=== PATIENT | male | born 1960 | race Caucasian/White ===

== ENCOUNTER 2016-12-11 16:01 | Emergency (ER) | payer OTHER ==
[~2016-12-11] VITALS: Ht 185.4 cm; Wt 74.8 kg
[~2016-12-11 16:01] MED LIST: DOXYCYCLINE100 M3 PO; PREDNISONE10 MG PO
[2016-12-11 16:08] VITALS: BP 110/74
== END 2016-12-11 16:22 | disposition home or self-care (01) ==
LOC: ED 16:01
DX: S80.862A Insect bite (nonvenomous), left lower leg, initial encounter (principal); F17.200 Nicotine dependence, unspecified, uncomplicated; Z98.890 Other specified postprocedural states; Z79.899 Other long term (current) drug therapy; W57.XXXA Bitten or stung by nonvenomous insect and other nonvenomous arthropods, initial encounter; Y93.89 Activity, other specified; Y92.89 Other specified places as the place of occurrence of the external cause; Y99.9 Unspecified external cause status

== ENCOUNTER 2017-05-03 17:42 | Emergency (ER) | payer OTHER ==
[~2017-05-03] VITALS: Ht 185.4 cm; Wt 74.8 kg
[2017-05-03 18:02] VITALS: BP 138/87
[2017-05-03] MEDS ORDERED: Tobrex Ophth S2.5 ML OPH (18:16)
== END 2017-05-03 22:20 | disposition home or self-care (01) ==
LOC: ED 17:42
DX: S05.01XA Injury of conjunctiva and corneal abrasion without foreign body, right eye, initial encounter (principal); R03.0 Elevated blood-pressure reading, without diagnosis of hypertension; F17.200 Nicotine dependence, unspecified, uncomplicated; X58.XXXA Exposure to other specified factors, initial encounter; Y93.89 Activity, other specified; Y92.89 Other specified places as the place of occurrence of the external cause; Y99.8 Other external cause status

== ENCOUNTER 2018-04-29 18:01 | Emergency (ER) | payer OTHER ==
[~2018-04-29] VITALS: Ht 185.4 cm; Wt 74.8 kg
[~2018-04-29 18:01] MED LIST changes: +Tobrex Ophth S2.5 ML OPH
[2018-04-29 18:02] VITALS: BP 122/82
[2018-04-29] MEDS ORDERED: KEFLEX500 M1 PO (18:45)
[2018-04-29] MEDS ORDERED: NAPROSYN500 MG PO (18:45)
[2018-04-29] MEDS ORDERED: SEPTDS PO (18:45)
== END 2018-04-29 19:01 | disposition home or self-care (01) ==
LOC: ED 18:01
DX: S62.667A Nondisplaced fracture of distal phalanx of left little finger, initial encounter for closed fracture (principal); L03.012 Cellulitis of left finger; R03.0 Elevated blood-pressure reading, without diagnosis of hypertension; W22.8XXA Striking against or struck by other objects, initial encounter; Y93.89 Activity, other specified; Y92.69 Other specified industrial and construction area as the place of occurrence of the external cause; Y99.8 Other external cause status

== ENCOUNTER 2020-02-23 10:15 | Emergency (ER) | payer SELFPAY ==
[~2020-02-23] VITALS: Ht 185.4 cm; Wt 77.1 kg
[~2020-02-23 10:15] MED LIST changes: +KEFLEX500 M1 PO; +NAPROSYN500 MG PO; +SEPTDS PO
[2020-02-23 10:22] VITALS: BP 160/94
[2020-02-23 11:14] LABS: BASO % 0.5 % (0.0-1.0); EOS # 0.1 10*3/uL (0.0-0.4); EOS % 1.1 % (1.0-4.0); HEMATOCRIT 50.3 % (42.0-52.0); LYMPH # 3.2 10*3/uL (1.3-4.4); LYMPH % 51.2 % (27.0-41.0); MEAN CELL VOLUME 93.7 fl (80.0-94.0); MEAN CORPUSCULAR HGB 31.8 pg (27.0-31.0); MEAN PLATELET VOLUME 9.2 fl (9.6-12.3); MONO # 0.5 10*3/uL (0.1-1.0); MONO % 8.1 % (3.0-9.0); NEUT # 2.5 10*3/uL (2.3-7.9); NEUT % 38.9 % (47.0-73.0); PLATELET COUNT AUTOMATED 234 10*3/uL (130-400); RED BLOOD COUNT 5.37 10*6/uL (4.50-5.90); RED CELL DISTRI WIDTH 13.2 % (0-14.5); WHITE BLOOD COUNT 6.3 10*3/uL (4.8-10.8)
[2020-02-23 11:50] LABS: ALBUMIN 3.6 gm/dl (3.1-4.5); ALKALINE PHOSPHATASE 76 U/L (45-117); BUN 8 mg/dl (7-24); CHLORIDE 107 mmol/L (98-107); CREATININE 1.05 mg/dL (0.70-1.30); POTASSIUM 4.2 mmol/L (3.5-5.1); SGOT/AST 15 IU/L (3-35); SGPT/ALT 27 U/L (12-78); SODIUM 138 mmol/L (136-145); TOTAL PROTEIN 7.4 gm/dL (6.4-8.2)
== END 2020-02-23 12:41 | disposition left against medical advice (07) ==
LOC: ED 10:15
PROVIDERS: Emergency Medicine
DX: M54.5 Low back pain (principal); M25.562 Pain in left knee; M79.652 Pain in left thigh; R53.1 Weakness; Z79.899 Other long term (current) drug therapy